=== PATIENT | male | born 1980 | race Caucasian/White ===

== ENCOUNTER → 2016-06-06 | Outpatient (CLI) | payer OTHER ==
[~2016-06-06] MED LIST: CELEXA20 MG PO
== END ==
LOC: RAD 14:56
DX: M79.9 Soft tissue disorder, unspecified (principal)

== ENCOUNTER → 2016-06-13 | Outpatient (CLI) | payer OTHER | LOC: RAD 07:02 | DX: M79.9 Soft tissue disorder, unspecified (principal); D17.23 Benign lipomatous neoplasm of skin and subcutaneous tissue of right leg ==